=== PATIENT | female | born 1980 | race Caucasian/White ===

== ENCOUNTER 2023-05-04 08:55 | Inpatient (IN) | payer OTHER ==
[~2023-05-04] VITALS: Ht 162.6 cm; Wt 68.9 kg
[2023-05-04 08:00] VITALS: BP 130/74; PULSE 98; RESP 18; TEMP 98.1
[2023-05-04 09:28] LABS: BASOPHILS % 0.9 % (0.0-2.0); EOSINOPHILS % 0.6 % (0.0-5.0); HEMOGLOBIN. 14.3 g/dL (12.0-16.0); LYMPHOCYTES % 24.3 % (20.0-50.0); MEAN CORPUSCULAR HEMOGLOBIN 29.3 pg (28.0-32.0); MEAN CORPUSCULAR VOLUME 83.8 fL (81.0-99.0); MEAN PLATELET VOLUME 9.4 fl (7.4-10.4); MONOCYTES % 7.3 % (2.0-8.0); NEUTROPHILS % 66.9 % (40.0-76.0); PLATELET 183 x1000/uL (130-400); RED BLOOD CELL COUNT 4.89 mill/uL (4.2-5.4); RED CELL DISTRIBUTION WIDTH 13.5 % (11.6-14.6); WHITE BLOOD COUNT 7.5 x1000/uL (4.5-11.0)
[2023-05-04 09:48] LABS: ALANINE AMINOTRANSFERASE 20 IU/L (10-49); ALBUMIN 4.4 g/dL (3.2-4.8); ASPARTATE AMINOTRANSFERASE 18 IU/L (<34); BILIRUBIN TOTAL 0.6 mg/dL (0.1-1.0); CALCIUM 9.2 mg/dL (8.7-10.4); CARBON DIOXIDE 23 mEq/L (21-32); CHLORIDE 103 mEq/L (98-107); CREATININE 0.8 mg/dL (0.6-1.0); GLUCOSE 147 mg/dL (70-105); POTASSIUM 3.4 mEq/L (3.5-5.1); PROTEIN TOTAL 6.8 g/dL (6.0-8.3); SODIUM 135 mEq/L (136-145); UREA NITROGEN BLOOD 12 mg/dL (9-23)
[2023-05-04 09:54] LABS: HCG SCREEN NEGATIVE
[2023-05-04 10:32] LABS: TROPONIN I HIGH SENSITIVITY 67 ng/L (3.0-34)
[2023-05-04] MEDS ORDERED: DOCUSATE SODIUM 100MG CAPSULE PO PRN (12:00)
[2023-05-04] MEDS ORDERED: GUAIFENESIN 200MG/10ML SUGAR FREE UDC PO PRN (12:00)
[2023-05-04] MEDS ORDERED: NALOXONE HCL 0.4MG/ML VIAL IV PRN (12:00)
[2023-05-04] MEDS ORDERED: ONDANSETRON HCL 4MG/2ML INJ IV PRN (12:00)
[2023-05-04 13:04] LABS: T4 FREE 1.18 ng/dL (0.89-1.76); THYROID STIMULATING HORMONE 1.19 uIU/mL (0.55-4.78)
[2023-05-04] MEDS ORDERED: ENOXAPARIN 60MG/0.6ML SYR SUBCUT NR (13:45)
[2023-05-04 14:11] LABS: *AMPHETAMINES SCREEN URINE NEGATIVE (NEGATIVE); *BARBITURATES SCREEN URINE NEGATIVE (NEGATIVE); *BENZODIAZEPINES SCREEN URINE NEGATIVE (NEGATIVE); *COCAINE SCREEN URINE NEGATIVE (NEGATIVE); CANNABINOID URINE SCREEN NEGATIVE (NEGATIVE); ECSTASY MDMA SCREEN URINE NEGATIVE (NEGATIVE); METHADONE URINE SCREEN Neg (NEGATIVE); OPIATES URINE SCREEN NEGATIVE (NEGATIVE); PHENCYCLIDINE URINE SCREEN NEGATIVE (NEGATIVE)
[2023-05-04] MEDS: ACETAMINOPHEN 325MG TABLET PO PRN (15:13)
[2023-05-04] MEDS: PANTOPRAZOLE 40MG DR TABLET PO SCH (15:13)
[2023-05-04] MEDS: ASPIRIN 81MG EC TABLET PO NR (15:14)
[2023-05-04] MEDS: POTASSIUM CHLORIDE 20MEQ TABLET SR PO NR (15:17)
[2023-05-04] MEDS: ENOXAPARIN 60MG/0.6ML SYR SUBCUT NR (15:18)
[2023-05-04 16:17] VITALS: BP 110/65; PULSE 98; RESP 18; TEMP 97.6
[2023-05-04 16:23] VITALS: BP 110/65; PULSE 98; RESP 18; TEMP 97.6
[2023-05-04 19:06] VITALS: PULSE 98; RESP 18; TEMP 98.1
[2023-05-04 20:00] VITALS: BP 99/42; PULSE 92; RESP 19; TEMP 97.3
[2023-05-04] MEDS: ATORVASTATIN CALCIUM 20MG TABLET PO SCH (21:23)
[2023-05-05] VITALS (8 sets, daily range): BP systolic 101–128; BP diastolic 47–72; PULSE 78–91; RESP 18–20; TEMP 97–98.2; O2SAT 96
[2023-05-05 07:06] LABS: BASOPHILS % 0.8 % (0.0-2.0); DIFFERENTIAL COMMENT 0; EOSINOPHILS % 1.5 % (0.0-5.0); HEMATOCRIT. 40.9 % (36.0-48.0); LYMPHOCYTES % 38.3 % (20.0-50.0); MEAN CORPUSCULAR HEMOGLOBIN 28.9 pg (28.0-32.0); MEAN CORPUSCULAR HGB CONC 34.1 g/dL (31.0-37.0); MEAN CORPUSCULAR VOLUME 84.8 fL (81.0-99.0); MEAN PLATELET VOLUME 10.2 fl (7.4-10.4); MONOCYTES % 9.5 % (2.0-8.0); NEUTROPHILS % 49.9 % (40.0-76.0); PLATELET 180 x1000/uL (130-400); RED BLOOD CELL COUNT 4.82 mill/uL (4.2-5.4); RED CELL DISTRIBUTION WIDTH 13.5 % (11.6-14.6); WHITE BLOOD COUNT 7.6 x1000/uL (4.5-11.0)
[2023-05-05 07:37] LABS: ALANINE AMINOTRANSFERASE 20 IU/L (10-49); ALBUMIN 4.2 g/dL (3.2-4.8); ASPARTATE AMINOTRANSFERASE 24 IU/L (<34); BILIRUBIN TOTAL 0.5 mg/dL (0.1-1.0); CALCIUM 9.1 mg/dL (8.7-10.4); CARBON DIOXIDE 23 mEq/L (21-32); CHLORIDE 109 mEq/L (98-107); CREATININE 0.8 mg/dL (0.6-1.0); GLUCOSE 100 mg/dL (70-105); POTASSIUM 4.2 mEq/L (3.5-5.1); PROTEIN TOTAL 6.8 g/dL (6.0-8.3); SODIUM 141 mEq/L (136-145); UREA NITROGEN BLOOD 10 mg/dL (9-23)
[2023-05-05 07:49] LABS: TROPONIN I HIGH SENSITIVITY 1031 ng/L (3.0-34)
[2023-05-05] MEDS: SODIUM CHLORIDE 0.45% 1,000 ML IV ONE (08:11)
[2023-05-05] MEDS: ASPIRIN 81MG EC TABLET PO SCH (08:12)
[2023-05-05] MEDS: MAGNESIUM 1 G PREMIX 100 ML IV NR (09:09)
[2023-05-05] MEDS ORDERED: ASPIRIN/SOD BICARB/CITRIC ACID 324MG TAB EFF ONE (12:57)
[2023-05-05] MEDS ORDERED: IODIXANOL 320MG/ML 100 ML BOTTLE IV ONE (12:57)
[2023-05-05] MEDS ORDERED: LIDOCAINE HCL/PF 1% 10 MG/ML 5ML VIAL ONE (12:57)
[2023-05-05] MEDS ORDERED: HEPARIN 1000 UNITS/ML 10ML ONE (12:57)
[2023-05-05] MEDS ORDERED: FENTANYL CITRATE/PF 50MCG/ML 2ML VIAL ONE (13:23)
[2023-05-05] MEDS ORDERED: MIDAZOLAM HCL 2 MG/2 ML VIAL ONE (13:23)
[2023-05-05] MEDS ORDERED: ONDANSETRON HCL 4MG/2ML INJ IV PRN (14:00)
[2023-05-05] MEDS ORDERED: ACETAMINOPHEN 325MG TABLET PO PRN (14:00)
[2023-05-05] MEDS ORDERED: MORPHINE SULFATE 2 MG/ML CPJ (NOT FOR IM USE) IV PRN (14:00)
[2023-05-05] MEDS ORDERED: SODIUM CHLORIDE 0.45% 1,000 ML IV ONE (14:00)
[2023-05-05] MEDS ORDERED: ATROPINE SULFATE 1MG/10ML SYR IV PRN (14:00)
[2023-05-05 14:43] LABS: CLARITY URINE CLEAR (CLEAR); COLOR URINE DARK YELLOW (YELLOW); GLUCOSE URINE NEGATIVE (NEGATIVE); KETONES URINE 1+ (NEGATIVE); LEUKOCYTE ESTERASE URINE TRACE (NEGATIVE); NITRITE URINE NEGATIVE (NEGATIVE); OCCULT BLOOD URINE NEGATIVE (NEGATIVE); PH URINE 7.5 (4.5-8.0); PROTEIN URINE TRACE (NEGATIVE); SPECIFIC GRAVITY URINE 1.021 (1.005-1.030)
[2023-05-05 15:06] LABS: RBC URINE 0-2 /hpf (0-2); SQUAMOUS EPITHELIAL CELL URINE 2+ /lpf (RARE/1+); WBC URINE 0-2 /hpf (0-2)
[2023-05-05 15:07] LABS: BACTERIA URINE 2+
[2023-05-05] MEDS: TRAMADOL 50MG TABLET PO PRN (18:29)
[2023-05-06] MEDS ORDERED: FAMOTIDINE 20MG TABLET PO SCH (09:00)
== END 2023-05-05 22:23 | disposition home or self-care (01) | DRG 282 ==
LOC: ER 08:55 → 7WST 10:44 → EDBEDREQTM 10:47 → EDBEDREQ 10:47
PROVIDERS: ADMIT Hospitalist; ATTEND Hospitalist
PROC: 4A023N7 Measurement of Cardiac Sampling and Pressure, Left Heart, Percutaneous Approach (ICD-10-PCS; principal; 2023-05-05)
PROC: B2111ZZ Fluoroscopy of Multiple Coronary Arteries using Low Osmolar Contrast (ICD-10-PCS; 2023-05-05)
DX: I21.4 Non-ST elevation (NSTEMI) myocardial infarction (principal); E87.6 Hypokalemia; E83.42 Hypomagnesemia; E78.5 Hyperlipidemia, unspecified; Z79.82 Long term (current) use of aspirin; Z79.4 Long term (current) use of insulin
CPT/HCPCS: 36415; 71045; 78582; 80053; 80061; 80305; 81003; 83735; 83880; 84439; 84443; 84481; 84484; 84703; 85025; 85379; 93005; 93306; 93458; 93970; 99291; A9558; C1769; C1893; J1644; J1650; J2250; J3010; J3475; J3490; Q9967

== ENCOUNTER 2023-05-30 20:31 | Emergency (ER) | payer OTHER ==
[~2023-05-30] VITALS: Ht 165.1 cm; Wt 65.5 kg
[2023-05-30 20:46] VITALS: BP 116/66; PULSE 91; RESP 18; TEMP 97.9; O2SAT 98
[2023-05-30 21:19] LABS: BASOPHILS % 0.8 % (0.0-2.0); EOSINOPHILS % 1.6 % (0.0-5.0); HEMATOCRIT. 42.9 % (36.0-48.0); HEMOGLOBIN. 14.4 g/dL (12.0-16.0); LYMPHOCYTES % 36.7 % (20.0-50.0); MEAN CORPUSCULAR HEMOGLOBIN 28.9 pg (28.0-32.0); MEAN CORPUSCULAR HGB CONC 33.5 g/dL (31.0-37.0); MEAN CORPUSCULAR VOLUME 86.4 fL (81.0-99.0); MEAN PLATELET VOLUME 9.7 fl (7.4-10.4); MONOCYTES % 8.5 % (2.0-8.0); NEUTROPHILS % 52.4 % (40.0-76.0); PLATELET 208 x1000/uL (130-400); RED BLOOD CELL COUNT 4.96 mill/uL (4.2-5.4); RED CELL DISTRIBUTION WIDTH 13.3 % (11.6-14.6); WHITE BLOOD COUNT 9.4 x1000/uL (4.5-11.0)
[2023-05-30 21:29] LABS: CLARITY URINE CLEAR (CLEAR); COLOR URINE YELLOW (YELLOW); GLUCOSE URINE NEGATIVE (NEGATIVE); KETONES URINE NEGATIVE (NEGATIVE); LEUKOCYTE ESTERASE URINE 1+ (NEGATIVE); NITRITE URINE NEGATIVE (NEGATIVE); OCCULT BLOOD URINE NEGATIVE (NEGATIVE); PROTEIN URINE NEGATIVE (NEGATIVE); SPECIFIC GRAVITY URINE 1.009 (1.005-1.030); UROBILINOGEN URINE 0.2 E.U./dL (0.2-1.0)
[2023-05-30 21:30] LABS: PARTIAL THROMBOPLASTIN TIME 24.2 sec (23.4-31.0); PROTHROMBIN TIME 10.7 sec (9.6-11.0)
[2023-05-30 21:41] LABS: HCG SCREEN NEGATIVE
[2023-05-30 21:42] LABS: ALANINE AMINOTRANSFERASE 23 IU/L (10-49); ALBUMIN 4.8 g/dL (3.2-4.8); ASPARTATE AMINOTRANSFERASE 21 IU/L (<34); BILIRUBIN TOTAL 0.4 mg/dL (0.1-1.0); CALCIUM 9.6 mg/dL (8.7-10.4); CARBON DIOXIDE 26 mEq/L (21-32); CHLORIDE 105 mEq/L (98-107); CREATININE 0.8 mg/dL (0.6-1.0); GLUCOSE 95 mg/dL (70-105); POTASSIUM 3.6 mEq/L (3.5-5.1); PROTEIN TOTAL 7.8 g/dL (6.0-8.3); SODIUM 139 mEq/L (136-145); UREA NITROGEN BLOOD 12 mg/dL (9-23)
[2023-05-30 21:43] LABS: TROPONIN I HIGH SENSITIVITY < 4 ng/L (3.0-34)
[2023-05-30 21:51] LABS: BACTERIA URINE NONE SEEN; RBC URINE NONE SEEN /hpf (0-2); SQUAMOUS EPITHELIAL CELL URINE RARE /lpf (RARE/1+)
[2023-05-30 23:55] LABS: TROPONIN I HIGH SENSITIVITY < 4 ng/L (3.0-34)
[2023-05-31] MEDS ORDERED: NITR-87 MT (00:07)
== END 2023-05-31 00:23 | disposition home or self-care (01) ==
LOC: ER 20:31
DX: R42 Dizziness and giddiness (principal); N39.0 Urinary tract infection, site not specified; I25.2 Old myocardial infarction
CPT/HCPCS: 36415; 71045; 80053; 81003; 83880; 84484; 84703; 85025; 93005; 99285